=== PATIENT | male | born 1985 | race Caucasian/White ===

== ENCOUNTER 2024-04-23 16:47 | Inpatient (IN) | payer MEDICAID, OTHER, SELFPAY ==
[~2024-04-23] VITALS: Ht 162.6 cm; Wt 79.8 kg
[2024-04-23] MEDS ORDERED: HOME MED LIST COMPLETE! XX SCH (17:35)
[2024-04-23 17:40] LABS: HEMOGLOBIN 12.9 g/dl (13.5-17.5); MEAN CORPUSCULAR HEMOGLOBIN 29.5 pg (27.0-33.0); MEAN CORPUSCULAR HGB CONC 33.9 g/dl (32.0-36.5); PLATELET COUNT, AUTOMATED 404 10^3/uL (150-450); RED BLOOD COUNT 4.37 10^6/uL (4.30-6.10)
[2024-04-23 17:59] LABS: ETHYL ALCOHOL (ETHANOL) < 0.003 % (0.000-0.010)
[2024-04-23 18:01] LABS: ALBUMIN 3.8 G/DL (3.2-5.2); ALKALINE PHOSPHATASE 91 U/L (46-116); ALT/SGPT 76 U/L (7.0-40); AST/SGOT 27 U/L (<34); BILIRUBIN,DIRECT 0.1 MG/DL (<0.4); BILIRUBIN,TOTAL 0.4 MG/DL (0.3-1.2); BLOOD UREA NITROGEN 13 MG/DL (9-23); CALCIUM LEVEL 9.4 MG/DL (8.5-10.1); CARBON DIOXIDE LEVEL 29 MMOL/L (20-31); CHLORIDE LEVEL 107 MMOL/L (98-107); GLOMERULAR FILTRATION RATE > 60.0 (>60); GLUCOSE, FASTING 123 MG/DL (60-100); POTASSIUM SERUM 4.2 MMOL/L (3.5-5.1); SALICYLATE LEVEL < 3.0 MG/DL (<30); SODIUM LEVEL 141 MMOL/L (136-145); TOTAL PROTEIN 7.4 G/DL (5.7-8.2)
[2024-04-23 18:03] LABS: THYROID STIMULATING HORMONE 0.396 uIU/ML (0.55-4.78)
[2024-04-23 18:08] LABS: AMPHETAMINES LEVEL URINE NEGATIVE (NEGATIVE); BARBITURATES URINE NEGATIVE (NEGATIVE); BENZODIAZEPINES URINE NEGATIVE (NEGATIVE); METHADONE URINE NEGATIVE (NEGATIVE)
[2024-04-23 18:09] LABS: CANNABINOIDS URINE NEGATIVE (NEGATIVE); OPIATES URINE NEGATIVE (NEGATIVE); PHENCYCLIDINE URINE NEGATIVE (NEGATIVE)
[2024-04-23 18:12] LABS: COCAINE METABOLITE URINE POSITIVE (NEGATIVE)
[2024-04-25] MEDS ORDERED: ONDANSETRON 4MG ORAL DISINTEGRATING TAB PO ONE (05:10)
[2024-04-25] MEDS ORDERED: MOM 30ML SUSPENSION UDC PO PRN (14:45)
[2024-04-25] MEDS ORDERED: MAALOX 30 ML SUSP *UDC PO PRN (14:45)
[2024-04-25] MEDS ORDERED: IBUPROFEN 400MG TAB PO PRN (14:45)
[2024-04-25 16:30] VITALS: BP 143/87; TEMP 98.8; O2SAT 99
[2024-04-25] MEDS: traZODone 50 MG TAB PO PRN (20:05)
[2024-04-26 06:22] VITALS: BP 136/86; TEMP 98.1; O2SAT 98
[2024-04-26] MEDS: cloNIDine 0.1MG TABLET PO SCH (09:16)
[2024-04-26] MEDS: BACLOFEN 5MG PER 1/2 TABLET PO SCH (10:04)
[2024-04-26] MEDS: SERTRALINE HCL 50 MG TAB PO SCH (12:33)
[2024-04-26 17:12] VITALS: BP 144/82; TEMP 99.2
[2024-04-27] MEDS: hydrOXYzine 50 MG TAB PO STA (09:10)
[2024-04-27 18:11] VITALS: BP 103/63; TEMP 97.1
[2024-04-27 20:26] VITALS: BP 128/77
[2024-04-27] MEDS: diphenhydrAMINE 25MG CAP PO PRN (20:28)
[2024-04-28 06:22] VITALS: BP 123/82; TEMP 98.1; O2SAT 98
[2024-04-28] MEDS: ACETAMINOPHEN TAB 650MG DOSE (2X325MG) PO PRN (08:48)
[2024-04-28 14:23] VITALS: BP 135/93; TEMP 97.6; O2SAT 99
[2024-04-29 06:29] VITALS: BP 132/83; TEMP 98.3; O2SAT 100
[2024-04-29] MEDS ORDERED: SERT50TA29 PO (07:25)
[2024-04-29] MEDS ORDERED: HYDR-3363 PO (07:25)
[2024-04-29] MEDS ORDERED: TRAZ-252 PO (07:25)
[2024-04-29 08:04] VITALS: BP 130/82
== END 2024-04-29 09:44 | disposition home or self-care (01) | DRG 754 ==
LOC: M ED 16:47 → M ED INP 04-25 14:45 → M PSY 04-25 15:37
PROVIDERS: ADMIT Student in an Organized Health Care Education/Training Program; ATTEND Student in an Organized Health Care Education/Training Program
DX: F32.A Depression, unspecified (principal); R45.851 Suicidal ideations; F41.9 Anxiety disorder, unspecified; F11.14 Opioid abuse with opioid-induced mood disorder; F11.13 Opioid abuse with withdrawal

== ENCOUNTER → 2024-05-04 | Outpatient (CLI) | payer MEDICAID ==
[~2024-05-04] MED LIST: HYDR-3363 PO; SERT50TA29 PO; TRAZ-252 PO
== END ==
LOC: M OUTALCOH 12:48
PROVIDERS: ATTEND Psychiatry & Neurology Psychiatry
DX: F11.20 Opioid dependence, uncomplicated (principal)

== ENCOUNTER 2024-05-16 16:02 | Outpatient (RCR) | payer MEDICAID | END 2024-05-18 | LOC: M OUTALCOH 16:02 | PROVIDERS: ATTEND Psychiatry & Neurology Psychiatry | DX: F11.20 Opioid dependence, uncomplicated (principal) ==

== ENCOUNTER 2024-06-17 15:00 | Outpatient (RCR) | payer MEDICAID | END 2024-06-18 | LOC: M OUTALCOH 15:00 | PROVIDERS: ATTEND Psychiatry & Neurology Psychiatry | DX: F11.20 Opioid dependence, uncomplicated (principal) ==

== ENCOUNTER 2025-01-26 07:46 | Emergency (ER) | payer MEDICAID, OTHER ==
[~2025-01-26] VITALS: Ht 162.6 cm; Wt 74.3 kg
[2025-01-26] MEDS: ACETAMINOPHEN *IV* 1,000 MG in IV 1 EA IV ONE (08:31)
[2025-01-26] MEDS: KETOROLAC 30 MG/ML 1ML VIAL IV ONE (08:31)
[2025-01-26] MEDS: HYDROMORPHONE HCL 0.5 MG/ 0.5 ML SYRINGE IV PRN (08:31)
[2025-01-26] MEDS: NS (Normal Saline) 0.9% 1,000 ML IV SCH (10:25)
[2025-01-26] MEDS: propofoL 200 MG/20 ML VIAL IV.PROC PRN (11:11)
[2025-01-26] MEDS ORDERED: KETO10TAB PO (11:27)
[2025-01-26 12:08] VITALS: BP 150/84; TEMP 98.2; O2SAT 98
== END 2025-01-26 12:09 | disposition home or self-care (01) ==
LOC: M ED 07:46
DX: S43.014A Anterior dislocation of right humerus, initial encounter (principal); Y92.019 Unspecified place in single-family (private) house as the place of occurrence of the external cause; Y93.9 Activity, unspecified; Y99.9 Unspecified external cause status; Z79.2 Long term (current) use of antibiotics
CPT/HCPCS: 23655; 73020; 73030; 93041; 94760; 96361; 96374; 96375; 99152; 99285; J0131; J1171; J1885

== ENCOUNTER 2025-09-25 14:13 | Emergency (ER) | payer OTHER ==
[~2025-09-25] VITALS: Ht 160 cm; Wt 71.1 kg
[~2025-09-25 14:13] MED LIST changes: +KETO10TAB PO
[2025-09-25 16:00] VITALS: BP 113/67
[2025-09-25 16:22] VITALS: TEMP 97; O2SAT 100
[2025-09-25] MEDS: IBUPROFEN 600 MG TAB PO ONE (16:24)
== END 2025-09-25 16:31 | disposition home or self-care (01) ==
LOC: M ED 14:13
DX: M19.011 Primary osteoarthritis, right shoulder (principal); S43.014A Anterior dislocation of right humerus, initial encounter; Y92.9 Unspecified place or not applicable; Y93.9 Activity, unspecified; Y99.9 Unspecified external cause status